=== PATIENT | male | born 1975 | race Caucasian/White ===

== ENCOUNTER 2024-02-27 22:30 | Emergency (ER) | payer SELFPAY ==
[~2024-02-27] VITALS: Ht 162.6 cm; Wt 83.0 kg
[2024-02-27 22:34] VITALS: BP 130/90; PULSE 78; RESP 18; TEMP 98.3; O2SAT 98
== END 2024-02-28 00:05 | disposition home or self-care (01) ==
LOC: ER 22:30
DX: F41.9 Anxiety disorder, unspecified (principal); I10 Essential (primary) hypertension
CPT/HCPCS: 99283

== ENCOUNTER 2024-02-28 00:55 | Emergency (ER) | payer SELFPAY ==
[~2024-02-28] VITALS: Ht 172.7 cm; Wt 90.7 kg
[2024-02-28 01:09] VITALS: BP 177/101; PULSE 105; RESP 16; TEMP 98.1; O2SAT 98
== END 2024-02-28 07:56 | disposition home or self-care (01) ==
LOC: ER 00:55
DX: F41.9 Anxiety disorder, unspecified (principal); F20.9 Schizophrenia, unspecified
CPT/HCPCS: 99281

== ENCOUNTER 2024-02-28 06:12 | Emergency (ER) | payer SELFPAY ==
[~2024-02-28] VITALS: Ht 175.3 cm; Wt 81.6 kg
[2024-02-28 06:31] VITALS: BP 142/77; PULSE 88; RESP 16; TEMP 98.7; O2SAT 99
== END 2024-02-28 07:00 | disposition left against medical advice (07) ==
LOC: ER 06:12
DX: Z53.21 Procedure and treatment not carried out due to patient leaving prior to being seen by health care provider (principal)